=== PATIENT | female | born 1945 | race Caucasian/White ===

== ENCOUNTER → 2018-06-21 | Outpatient (CLI) | payer MEDICARE, OTHER ==
[~2018-06-21] MED LIST: AMLO-1 PO; HYDR12.561 PO; IRBE300T11 PO; LOR5/325 PO; MET500 PO
[2018-06-21 10:22] LABS: LDL CHOLESTEROL 72 mg/dl
== END ==
LOC: LAB 09:09
PROVIDERS: ATTEND Nurse Practitioner Family
DX: R73.01 Impaired fasting glucose (principal); R53.81 Other malaise; E87.8 Other disorders of electrolyte and fluid balance, not elsewhere classified; E87.0 Hyperosmolality and hypernatremia; E53.8 Deficiency of other specified B group vitamins; E55.9 Vitamin D deficiency, unspecified
CPT/HCPCS: 36415; 82040; 82247; 82306; 82310; 82374; 82435; 82465; 82565; 82607; 82947; 83036; 83718; 84075; 84132; 84155; 84295; 84443; 84450; 84460; 84478; 84520; 85027

== ENCOUNTER → 2018-11-30 | Outpatient (CLI) | payer MEDICARE, OTHER ==
--- NOTE | 2018-11-30 14:33 | RADIOLOGY IMAGING REPORT ---
FACILITY: [facility] PATIENT NAME: Josselyn Ovalle : 1945 MR: [id number] V: [id number] EXAM DATE: ORDERING PHYSICIAN: BRAXTON JOHN TECHNOLOGIST: Location: [facility] Patient: Josselyn Ovalle : 1945 Visit/Account:[id number] Date of Sevice: 11/30/2018 Chest with lateral, two views. HISTORY: Cough, shortness of breath. COMPARISON: 01/17/2014. The heart size is normal. Pulmonary vessels are mildly engorged. Mild bronchial thickening is prese nt bilaterally. Mild streaky densities are present in the left lower lung and right lung base, essen tially unchanged. No pleural fluid. The thoracic aorta is minimally elongated. No acute bony abnor malities. IMPRESSION: Mild pulmonary vascular engorgement. Mild bronchial thickening. Mild bilateral subsegmental atelectasis or pleural parenchymal scars. Report Dictated By: Cameron Carolina MD at 11/30/2018 2:27 PM Report E-Signed By: Cameron Carolina MD at 11/30/2018 2:29 PM WSN:[id number]
== END ==
LOC: RAD 13:19
PROVIDERS: ATTEND Nurse Practitioner Family
DX: R05 Cough (principal); R68.89 Other general symptoms and signs
CPT/HCPCS: 71046

== ENCOUNTER → 2018-12-20 | Outpatient (CLI) | payer MEDICARE, OTHER ==
[2018-12-20 16:25] LABS: PLATELET COUNT, AUTOMATED 196 K/uL (150-450)
--- NOTE | 2018-12-20 17:15 | RADIOLOGY IMAGING REPORT ---
FACILITY: [facility] [place] PATIENT NAME: Josselyn Ovalle : 1945 MR: [id number] V: [id number] EXAM DATE: ORDERING PHYSICIAN: BRAXTON JOHN TECHNOLOGIST: Location: [facility] [place] Patient: Josselyn Ovalle : 1945 Visit/Account:[id number] Date of Sevice: 12/20/2018 Examination: CT chest with contrast COMPARISON: Chest x-ray 11/30/2018. HISTORY: Cough. Fever. Hypoxemia. PROCEDURE: Multiplanar contrast-enhanced imaging of the chest with 75 mL intravenous Isovue 370. One of the following dose optimization techniques was utilized in the performance of this exam: Automated exposure control; adjustment of the mA and/or kV according to the patient's size; or use of an itera tive reconstruction technique. Specific details can be referenced in the facility's radiology CT ex am operational policy. FINDINGS: Mediastinum: Cardiac chamber size is normal. Mild coronary calcifications. No pericardial effusion. D ilated 3.9 cm main pulmonary artery. No thoracic aortic aneurysm or dissection. Lymph nodes: Negative. Lungs and pleura: Mild pulmonary hyperexpansion. No definite evidence of emphysematous architectural distortion. Left lower lobe 8 x 6 x 6 mm subpleural nodule (series 3 image 64). Right lower lobe supe rior segment 4 mm nodule (series 3 image 49). No pneumothorax, edema, or effusion. Airways: Negative. Diaphragm: Intact. Upper abdomen: No acute findings. Osseous structures: Minimal degenerative change. No acute findings. IMPRESSION: 1. Pulmonary hyperexpansion. No findings of acute cardiopulmonary disease. 2. Two pulmonary nodules, the largest of which measures 8 x 6 x 6 mm. Recommend follow-up as detailed below. 3. Mild coronary calcifications. 4. Dilated main pulmonary artery is suggestive of pulmonary artery hypertension. [employer] FOLLOW-UP GUIDELINES FOR NEWLY DETECTED INCIDENTAL NODULES IN PERSONS 35 YEARS OF AGE OR OLDER. *These recommendations do NOT apply to lung cancer screening, patients with immunosuppression or jacinto ents with a known primary malignancy. MULTIPLE SOLID NODULES If nodule size is 6-8 mm: * Low risk patient - CT at 3-6 months, then consider CT at 18-24 months if no change. * High risk patient - CT at 3-6 months, then CT at 18-24 months if no change. LOW RISK PATIENT: Minimal or absent history of tobacco use and of other known risk factors. HIGH RISK PATIENT: Tobacco use, family history of lung cancer, upper pulmonary lobe location of nodul e, presence of emphysema, pulmonary fibrosis, older age. Mary Kate H, Oksana DP, Michael JM, et al. Guidelines for Management of Incidental Pulmonary Nodules Dete cted on CT Images: From the [employer]ischner Society 2017. Radiology. [facility] Report Dictated By: Junior Baker MD at 12/20/2018 5:02 PM Report E-Signed By: Junior Baker MD at 12/20/2018 5:12 PM WSN:[id number]
== END ==
LOC: LAB 15:36
PROVIDERS: ATTEND Nurse Practitioner Family
DX: R05 Cough (principal); R50.9 Fever, unspecified; R52 Pain, unspecified; R09.02 Hypoxemia; T07.XXXA Unspecified multiple injuries, initial encounter
CPT/HCPCS: 36415; 71260; 82040; 82247; 82310; 82374; 82435; 82565; 82947; 84075; 84132; 84155; 84295; 84450; 84460; 84520; 85025; 85379; 85651; 86140

== ENCOUNTER → 2019-03-01 | Outpatient (CLI) | payer MEDICARE, OTHER | LOC: RESP 01:10 | PROVIDERS: ATTEND Nurse Practitioner Family | DX: R53.83 Other fatigue (principal); R09.02 Hypoxemia; R06.00 Dyspnea, unspecified | CPT/HCPCS: 94060; 94726; 94729 ==

== ENCOUNTER → 2019-03-08 | Outpatient (CLI) | payer MEDICARE, OTHER ==
[~2019-03-08] MED LIST changes: +REGADENOSON 0.4 MG/5 ML SYR ONE
--- NOTE | 2019-03-09 12:05 | RADIOLOGY IMAGING REPORT ---
FACILITY: [facility] - [place] PATIENT NAME: Josselyn Ovalle : 1945 MR: [id number] V: [id number] EXAM DATE: ORDERING PHYSICIAN: BRAXTON JOHN TECHNOLOGIST: [place] [facility] [place] Patient: Josselyn Ovalle : 1945 Visit/Account:[id number] Date of Sevice: 03/08/2019 EXAMINATION: Single isotope SPECT imaging with regadenoson infusion and gated SPECT imaging. DATE OF EXAMINATION: March 08, 2019. DATE OF INTERPRETATION: March 09, 2019. REQUESTING PHYSICIAN: BRAXTON JOHN. INDICATION: The patient is a 73-year-old female evaluated for shortness of breath. PROCEDURE: After informed consent the patient received an intravenous injection of 11.3 mCi of Tc-99 m sestamibi followed at an appropriate time interval by rest imaging. The patient then subsequently received an intravenous infusion of 0.4 mg of regadenoson per protocol without complication. Resting heart rate was 56 bpm with a peak heart rate of 68 bpm. Blood pressure at rest was 121 / 68 and fol lowing infusion was 120 / 41. Baseline EKG demonstrates normal sinus rhythm. There were no EKG turcios ges of ischemia following infusion. Symptoms were nonspecific. The patient then received an intrave nous injection of 29.5 mCi of Tc-99m sestamibi followed by stress imaging. RAW DATA: Examination of the summed raw data revealed a good quality study. MYOCARDIAL PERFUSION: The tomographic images demonstrate a mild decrease in myocardial perfusion tra cer uptake in the mid apical anterior wall seen on both stress and rest imaging that resolves with pr one imaging. No reversible defect noted. GATED IMAGES: The gated images demonstrate an ejection fraction greater than 70% with no wall motion abnormality. IMPRESSION: 1. Normal myocardial perfusion scan with no evidence of ischemia. The mild fixed defect in the anter ior wall is likely breast attenuation artifact 2. Normal myocardial perfusion scan. 3. Normal LV systolic function; LVEF greater than 70%. 4. Based on the results of this exam, the patient appears to be at low risk for future cardiovascular events. Report Dictated By: No Zamudio at 03/09/2019 11:55 AM Report E-Signed By: No Zamudio at 03/09/2019 11:57 AM WSN:[id number]
== END ==
LOC: NUC 00:52
PROVIDERS: ATTEND Nurse Practitioner Family
DX: R53.83 Other fatigue (principal); R09.02 Hypoxemia; R06.00 Dyspnea, unspecified
CPT/HCPCS: 78452; 93017; A9500; J2785